=== PATIENT | female | born 1990 | race American Indian/Alaskan Native ===

== ENCOUNTER 2022-01-09 03:21 | Emergency (ER) | payer OTHER ==
[~2022-01-09] VITALS: Ht 157.5 cm; Wt 63.5 kg
[2022-01-09 03:28] VITALS: BP 163/96
--- NOTE | 2022-01-09 03:33 | NUR ---
PT BROUGHT TO BED 3 VIA [facility]
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
--- NOTE | 2022-01-09 03:39 | NUR ---
ER MD AT BEDSIDE EVALUATING PT
[2022-01-09] MEDS ORDERED: ACETAMINOPHEN EXTRA STRENGTH 500 MG TAB PO ONE (03:50)
--- NOTE | 2022-01-09 03:59 | NUR ---
LAB AT BEDSIDE
--- NOTE | 2022-01-09 04:04 | NUR ---
PATIENT TO THE BATHROOM
[2022-01-09 04:08] LABS: BASOPHILS % (AUTO) 0.5 % (0.0-2.0); EOSINOPHILS % (AUTO) 0.3 % (0.0-4.0); HEMATOCRIT 43.2 % (36-48); HEMOGLOBIN 14.6 g/dL (12.0-16.0); LYMPHOCYTES # (AUTO) 1.7 K/uL (2.5-16.5); LYMPHOCYTES % (AUTO) 31.9 % (20.5-51.1); MEAN CORPUSCULAR HEMOGLOBIN 32 pg (27-31); MEAN CORPUSCULAR HGB CONC 34 g/dL (33-37); MEAN CORPUSCULAR VOLUME 94.3 fL (80-94); MONOCYTES # (AUTO) 0.5 K/uL (0.8-1.0); MONOCYTES % (AUTO) 10.1 % (1.7-9.3); NEUTROPHILS % (AUTO) 57.2 % (42.2-75.2); PLATELET COUNT (AUTO) 280 K/uL (140-450); RED BLOOD CELL COUNT(AUTO) 4.58 MIL/uL (4.20-5.40); RED CELL DISTRIBUTION WIDTH 13.1 % (11.6-13.7); WHITE BLOOD COUNT (AUTO) 5.2 K/uL (4.8-10.8)
--- NOTE | 2022-01-09 04:27 | NUR ---
[facility] at bedside
[2022-01-09 04:34] LABS: CARBON DIOXIDE 21.4 mmol/L (21-32); CREATININE 0.8 mg/dL (0.6-1.3); POTASSIUM 3.4 mmol/L (3.5-5.1); TOTAL BILIRUBIN 0.2 mg/dL (0.0-1.0)
--- NOTE | 2022-01-09 05:20 | NUR ---
PT TAKEN TO CT
--- NOTE | 2022-01-09 07:32 | NUR ---
TRANSFER OF CARE REPORT GIVEN TO RASHEED VEAG
--- NOTE | 2022-01-09 07:33 | NUR ---
RECEIVED REPORT FROM RASHEED KRAUS. TRANSFER OF CARE AT THIS TIME.
--- NOTE | 2022-01-09 07:47 | NUR ---
GAVE REPORT TO RASHEED BLOUNT. TRANSFER OF CARE AT THIS TIME.
--- NOTE | 2022-01-09 07:53 | NUR ---
REPORT RECIEVED FROM GARY FOR TRANSFER OF CARE. PATIENT IS LAYING IN BED, NEEDS MET.
--- NOTE | 2022-01-09 08:57 | NUR ---
PT TO WAIT IN LOBBY FOR RIDE HOME FROM FAMILY.
[2022-01-09 08:58] VITALS: BP 127/81
--- NOTE | 2022-01-09 08:58 | NUR ---
Patient discharged with v/s stable. Written and verbal after care instructions given FOR [employer] INJURY and explained. Patient verbalized understanding. Ambulatory with steady gait, TO BE PICKED UP BY FAMILY. All questions addressed prior to discharge. Advised to follow up with PMD.
--- NOTE | 2022-01-09 08:59 | NUR ---
The patient's care was reviewed and supervised by Mitali Villalta RN.
== END 2022-01-09 08:58 | disposition home or self-care (01) ==
LOC: MED 03:21
DX: M54.2 Cervicalgia (principal); R07.9 Chest pain, unspecified; F41.9 Anxiety disorder, unspecified; G89.29 Other chronic pain; Z88.8 Allergy status to other drugs, medicaments and biological substances; V98.8XXA Other specified transport accidents, initial encounter; Y93.89 Activity, other specified; Y92.89 Other specified places as the place of occurrence of the external cause; Y99.8 Other external cause status
CPT/HCPCS: 36415; 70450; 71260; 72125; 80053; 81002; 81025; 84702; 85025; 99285; G0482; Q9967; 96361